=== PATIENT | male | born 2000 | race Caucasian/White ===

== ENCOUNTER 2020-11-24 10:49 | Emergency (ER) | payer OTHER ==
[~2020-11-24] VITALS: Ht 180.3 cm; Wt 79.5 kg
[2020-11-24 11:25] VITALS: TEMP 98.7
[2020-11-24 15:01] VITALS: BP 121/72; PULSE 60
== END 2020-11-24 15:02 | disposition home or self-care (01) ==
LOC: COL.ER 10:49
DX: S63.297A Dislocation of distal interphalangeal joint of left little finger, initial encounter (principal); X58.XXXA Exposure to other specified factors, initial encounter; Y93.61 Activity, american tackle football